=== PATIENT | male | born 1995 | race Caucasian/White ===

== ENCOUNTER 2017-06-10 00:24 | Emergency (ER) | payer BC ==
--- NOTE | 2017-06-10 01:40 | EDPHY ---
H & P Stated Complaint: WRESTLING WITH FRIEND, HIT RIGHT SIDE HEAD ON FRIEND CHEST, FEELS DIZZY HPI/ROS: HPI CHIEF COMPLAINT: Fall, head injury HISTORY OF PRESENT ILLNESS: This patient is a 21-year-old male, otherwise healthy, denies any significant medical history presents emergency room after he fell approximately 3 hours ago. He was messing around the body was wrestling and he had head strike against the ground. No LOC. No vomiting. Does have nausea. Reports feeling lightheaded after this. Denies neck pain. Does have a mild headache globally. No chest pain or shortness of breath. Does have a history of concussion. Past Medical History: Concussion Past Surgical History: No recent surgery Social History: Denies daily use of drugs alcohol tobacco products. Family History: ROS REVIEW OF SYSTEMS: A comprehensive 10 point review of systems is otherwise negative aside from elements mentioned in the history of present illness. Exam Constitutional noncontributory appears well nontoxic, triage nursing summary reviewed, vital signs reviewed, awake/alert. Eyes normal conjunctivae and sclera, EOMI, PERRLA. HENT head/neck: Atraumatic head exam. No midline cervical spine pain. moist mucus membranes, no epistaxis, neck supple/ no meningismus, no raccoon eyes. Respiratory clear to auscultation bilaterally, normal breath sounds, no respiratory distress, no wheezing. Cardiovascular rate normal, regular rhythm, no murmur, no edema, distal pulses normal. Gastrointestinal soft, non-tender, no rebound, no guarding, normal bowel sounds, no distension, no pulsatile mass. Genitourinary no CVA tenderness. Musculoskeletal no midline vertebral tenderness, full range of motion, no calf swelling, no tenderness of extremities, no meningismus, good pulses, neurovascularly intact. Skin pink, warm, & dry, no rash, skin atraumatic. Neurologic awake, alert and oriented x 3, AAOx3, moves all 4 extremities equally, motor intact, sensory intact, CN II-XII intact, normal cerebellar, normal vision, normal speech. Psychiatric normal mood/affect. Heme/Lymph/Immune no lymphadenopathy. Differential Diagnosis: Includes but is not limited to in a particular order, closed-head injury, intracranial bleed, skull fracture, subdural, traumatic subarachnoid, concussion Medical Decision Making: Plan for this patient CT head without contrast to evaluate for further trauma. Re-evaluation: CT scan of the head without IV contrast The results of the study are negative for acute traumatic injury. The study was read by Dr. Fajardo. I viewed the images myself on the PACS system. 0205: This patient most likely has a closed head injury with concussion. Recommend follow up with concussion physician. Return emergency room if there is worsening symptoms. Questions or concerns. Return precautions given. Return if worsening headache vomiting or fever. Source: Patient - Personal History Current Tetanus/Diphtheria Vaccine: Yes - Medical/Surgical History Hx Asthma: No Hx Chronic Respiratory Disease: No Hx Diabetes: No Hx Cardiac Disease: No Hx Renal Disease: No Hx Cirrhosis: No Hx Alcoholism: No Hx HIV/AIDS: No Hx Splenectomy or Spleen Trauma: No Other PMH: G[place]S DISEASE - Social History Smoking Status: Current some day smoker Constitutional: Initial Vital Signs Temperature (C) 36.8 C 06/10/17 00:49 Heart Rate 76 06/10/17 00:49 Respiratory Rate 18 06/10/17 00:49 Blood Pressure 106/60 06/10/17 00:49 O2 Sat (%) 97 06/10/17 00:49 O2 Delivery Mode Room Air Allergies/Adverse Reactions: No Known Allergies Allergy (Unverified 06/10/17 00:49) Departure - Departure Disposition: Home, Routine, Self-Care Clinical Impression: Concussion Qualifiers: Encounter type: initial encounter Loss of consciousness presence/duration: without LOC Qualified Code(s): S06.0X0A - Concussion without loss of consciousness, initial encounter Condition: Good Instructions: Concussion (ED), Head Injury (ED) Additional Instructions: 1.Return emergency room if he develops worsening headache fever vomiting. Referrals: [facility]ENG SLADE [Other] - As per Instructions Shabana Cardozo MD [Medical Doctor] - As per Instructions
[2017-06-10 02:15] VITALS: BP 131/67; PULSE 70; RESP 16; TEMP 98.6; O2SAT 78
== END 2017-06-10 02:16 | disposition home or self-care (01) ==
DX: S06.0X0A Concussion without loss of consciousness, initial encounter (principal); F17.200 Nicotine dependence, unspecified, uncomplicated; W18.09XA Striking against other object with subsequent fall, initial encounter; Y99.8 Other external cause status; Y93.72 Activity, wrestling